=== PATIENT | male | born 1975 | race Hispanic/Latino ===

== ENCOUNTER 2022-09-02 08:39 | Emergency (ER) | payer OTHER, BC ==
[~2022-09-02] VITALS: Ht 172.7 cm; Wt 108.9 kg
[2022-09-02] MEDS ORDERED: KETOROLAC 30MG VIAL (30MG/ML) IM ONE ×2 (09:30)
[2022-09-02] MEDS ORDERED: NAPR375T6 PO (10:48)
[2022-09-02 11:27] VITALS: BP 135/98
== END 2022-09-02 11:27 | disposition home or self-care (01) ==
LOC: EDH 08:39
DX: S29.012A Strain of muscle and tendon of back wall of thorax, initial encounter (principal); V89.2XXA Person injured in unspecified motor-vehicle accident, traffic, initial encounter; Y93.89 Activity, other specified; Y92.410 Unspecified street and highway as the place of occurrence of the external cause; Y99.8 Other external cause status
CPT/HCPCS: 99284; 72040; 73562; 72100; 72072; 96372; J1885

== ENCOUNTER 2024-03-03 02:06 | Inpatient (IN) | payer BC ==
[2024-03-03] VITALS (8 sets, daily range): BP systolic 131–155; BP diastolic 77–100; PULSE 79–98; RESP 17–19; TEMP 98–100; O2SAT 96–98
[~2024-03-03] VITALS: Ht 172.7 cm; Wt 107.9 kg
[~2024-03-03 02:06] MED LIST: NAPR375T6 PO
[2024-03-03] MEDS: [UNRECOGNIZED DRUG - OTHER] IV ONE (02:18)
[2024-03-03] MEDS: cefTRIAXone 1G VIAL IVPB ONE (02:18)
[2024-03-03] MEDS: ONDANSETRON 4MG INJ ONE (02:18)
[2024-03-03 02:19] LABS: BASOPHILS # (AUTO) 0.05 K/uL (0.00-0.20); BASOPHILS % (AUTO) 0.4 % (0.0-5.0); EOSINOPHILS # (AUTO) 0.12 K/uL (0.00-0.70); EOSINOPHILS % (AUTO) 0.9 % (0.0-8.0); HEMATOCRIT 44.3 % (42-54); LYMPHOCYTES # (AUTO) 3.7 K/uL (1.0-4.8); LYMPHOCYTES % (AUTO) 28.8 % (21.0-51.0); MEAN CORPUSCULAR HEMOGLOBIN 30.3 pg (27.0-33.0); MEAN CORPUSCULAR HGB CONC 34.8 g/dL (32.0-36.0); MEAN CORPUSCULAR VOLUME 87.2 fL (79-99); MONOCYTES # (AUTO) 0.6 K/uL (0.1-1.0); MONOCYTES % (AUTO) 4.2 % (3.0-13.0); NEUTROPHILS # (AUTO) 8.4 K/uL (1.8-7.7); NEUTROPHILS % (AUTO) 64.9 % (40.0-77.0); PLATELET COUNT (AUTO) 283 K/uL (130-400); RED BLOOD CELL COUNT(AUTO) 5.08 MIL/uL (4.50-6.20); RED CELL DISTRIBUTION WIDTH 11.8 % (11.0-15.5)
[2024-03-03 02:37] LABS: ABG BASE EXCESS -12.2 mmol/L (-2.0-3.0); ABG HCO3 13.3 mmol/L (21.0-28.0); ABG OXYGEN SATURATION 95.4 % (94.0-98.0); ABG PCO2 30 mmHg (35-48); ABG PH 7.265 (7.350-7.450); PO2, ARTERIAL BG 86.5 mmHg (83.0-108.0); VENT MODE, BG ROOMAIR (ROOM AIR)
[2024-03-03 02:46] LABS: B-TYPE NATRIURETIC PEPTIDE 27 pg/mL (0-100)
[2024-03-03 02:51] LABS: ALBUMIN 3.8 g/dL (3.5-5.0); BILIRUBIN,DIRECT 0.3 mg/dL (0.0-0.3); BILIRUBIN,TOTAL 0.6 mg/dL (0.2-1.0); TOTAL PROTEIN, SERUM 7.4 g/dL (6.0-8.3)
[2024-03-03 02:54] LABS: CREATININE 1.4 mg/dL (0.5-1.3)
[2024-03-03] MEDS: ONDANSETRON 4MG INJ IVP ONE ×2 (03:23→05:24)
[2024-03-03] MEDS ORDERED: IOHEXOL-350 75 ML VIAL IV ONE (03:56)
[2024-03-03 04:50] LABS: MAGNESIUM 1.6 mg/dL (1.80-2.40)
[2024-03-03] MEDS: POTASSIUM CHLORIDE 10MEQ/100ML 100 ML IV ONE (05:17)
[2024-03-03 05:19] LABS: APPEARANCE,URINE CLEAR (CLEAR); BILIRUBIN,URINE NEGATIVE (NEGATIVE); COLOR,URINE COLORLESS (YELLOW); GLUCOSE, URINE (UA) NEGATIVE (NEGATIVE); KETONES,URINE NEGATIVE (NEGATIVE); LEUKOCYTE ESTERASE ,URINE NEGATIVE Leu/uL (NEGATIVE); NITRATE,URINE NEGATIVE (NEGATIVE); OCCULT BLOOD,URINE NEGATIVE (NEGATIVE); PROTEIN,URINE NEGATIVE (NEGATIVE); UROBILINOGEN,URINE 0.2 mg/dL (0.2-1.0)
[2024-03-03] MEDS: hydroMORPHone 0.5 MG SYG (0.5MG/0.5ML) IVP ONE (05:25)
[2024-03-03 05:26] LABS: ADD UA MICROSCOPIC NO
[2024-03-03 05:27] LABS: AMPHET/METH SCREEN,URINE NEGATIVE (NEGATIVE); BARBITURATE SCREEN, URINE NEGATIVE (NEGATIVE); BENZODIAZEPINES SCREEN,URINE NEGATIVE (NEGATIVE); CANNABINOID SCREEN,URINE NEGATIVE (NEGATIVE); COCAINE SCREEN,URINE NEGATIVE (NEGATIVE); OPIATE SCREEN,URINE NEGATIVE (NEGATIVE); PHENCYCLIDINE SCREEN,URINE NEGATIVE (NEGATIVE)
[2024-03-03] MEDS: 0.9%NACL 1000ML 1,000 ML IV SCH ×2 (05:58→15:59)
[2024-03-03] MEDS ORDERED: TEMAZEPAM 15 MG CAPSULE PO PRN (06:00)
[2024-03-03] MEDS ORDERED: GLUCAGON 1MG KIT 1 MG ML IM PRN (06:00)
[2024-03-03] MEDS ORDERED: acetaMINOPHEN 650 MG SUPPOSITORY RC PRN (06:00)
[2024-03-03] MEDS ORDERED: ONDANSETRON 4MG INJ IVP PRN (06:00)
[2024-03-03] MEDS ORDERED: POTASSIUM CHLORIDE 20MEQ/100ML 100 ML IV PRN (06:00)
[2024-03-03] MEDS ORDERED: doCUSate SODIUM 100 MG CAP PO PRN (06:00)
[2024-03-03] MEDS ORDERED: MAGNESIUM 2GM PREMIX 50ML 50 ML IV PRN (06:00)
[2024-03-03] MEDS ORDERED: DEXTROSE 50%-WATER 50 ML DISP.SYRIN IV PRN (06:00)
[2024-03-03] MEDS ORDERED: hydrALAZine 20MG/ML VIAL IV PRN ×2 (06:00→12:00)
[2024-03-03] MEDS ORDERED: POTASSIUM CHLORIDE 10% ELIXIR 20 MEQ/15 ML UDCUP PO PRN (06:00)
[2024-03-03] MEDS ORDERED: LACTULOSE 20 GM/30 ML UDCUP PO PRN (06:00)
[2024-03-03] MEDS ORDERED: ketOROlac 30MG VIAL (30MG/ML) IVP PRN (06:00)
[2024-03-03] MEDS: INSULIN humuLIN R 100 UNIT/ML 3ML SQ SCH (07:30)
[2024-03-03] MEDS: ENOXAPARIN SODIUM 30 MG/0.3 ML SQ SCH (08:27)
[2024-03-03] MEDS: ZOSYN 3.375GM +NS 50ML IV SCH (08:27)
[2024-03-03] MEDS ORDERED: METF-446 PO (10:45)
[2024-03-03] MEDS: morPHINE 2 MG SYG IVP PRN (10:59)
[2024-03-03] MEDS ORDERED: metRONIDazole 500MG/100ML BAG IV SCH (12:00)
[2024-03-03 12:05] LABS: ABG BASE EXCESS -4.2 mmol/L (-2.0-3.0); ABG HCO3 19.8 mmol/L (21.0-28.0); ABG OXYGEN SATURATION 95.7 % (94.0-98.0); ABG PCO2 34 mmHg (35-48); ABG PH 7.389 (7.350-7.450); DEVICE COMMENT RR VELENTINA; PO2, ARTERIAL BG 79.1 mmHg (83.0-108.0); VENT MODE, BG RA (ROOM AIR)
[2024-03-03] MEDS: cefTRIAXone 1G VIAL IVPB SCH (12:36)
[2024-03-03] MEDS: metRONIDazole 500MG/100ML BAG 100 ML IVPB SCH (13:00)
[2024-03-03] MEDS ORDERED: ROSU20TA73 PO (15:45)
[2024-03-03] MEDS ORDERED: LISI1TAB51 PO (15:45)
[2024-03-03] MEDS ORDERED: OMEP40CA21 PO (15:47)
[2024-03-03] MEDS ORDERED: UBID400C8 PO (15:47)
[2024-03-03] MEDS: hydroCHLOROthiazide 25 MG TABLET PO ONE (16:37)
[2024-03-03] MEDS: LISINOPRIL 20 MG TABLET PO ONE (16:38)
[2024-03-03] MEDS: KCL 20 MEQ ERTAB PO PRN (19:49)
[2024-03-03] MEDS: MAGNESIUM 2GM PREMIX 50ML 50 ML IV SCH (19:49)
[2024-03-03] MEDS: acetaMINOPHEN 325 MG TAB PO PRN (22:26)
[2024-03-04] VITALS (8 sets, daily range): BP systolic 132–149; BP diastolic 83–101; PULSE 73–98; RESP 16–19; TEMP 98.3–101.5; O2SAT 97–98
[2024-03-04 05:49] LABS: HEMATOCRIT 35.4 % (42-54); MEAN CORPUSCULAR HEMOGLOBIN 30.5 pg (27.0-33.0); MEAN CORPUSCULAR HGB CONC 34.5 g/dL (32.0-36.0); MEAN CORPUSCULAR VOLUME 88.5 fL (79-99); RED CELL DISTRIBUTION WIDTH 12.2 % (11.0-15.5); WHITE BLOOD COUNT (AUTO) 9.6 K/uL (4.8-10.8)
[2024-03-04 06:06] LABS: ALBUMIN 2.8 g/dL (3.5-5.0); BILIRUBIN,TOTAL 0.8 mg/dL (0.2-1.0); CREATININE 0.9 mg/dL (0.5-1.3); MAGNESIUM 1.8 mg/dL (1.80-2.40); PHOSPHORUS 2.1 mg/dL (2.5-4.9); POTASSIUM 4.3 mmol/L (3.5-5.1); TOTAL PROTEIN, SERUM 5.9 g/dL (6.0-8.3)
[2024-03-04] MEDS ORDERED: NON-FORMULARY MEDICATION 1 EACH (Lisinopril/Hydrochlorothiazide (Lisinopril-Hctz 20-12.5 m PO SCH (09:00)
[2024-03-04] MEDS: hydroCHLOROthiazide 25 MG TABLET PO SCH (12:16)
[2024-03-04] MEDS: LISINOPRIL 20 MG TABLET PO SCH (12:17)
[2024-03-04] MEDS: LORazepam 2 MG/ML 1 ML VIAL IVP ONE (16:00)
[2024-03-04] MEDS: LAbetaLOL 20MG SYG IV ONE ×2 (23:26→23:31)
[2024-03-05] VITALS (13 sets, daily range): BP systolic 129–160; BP diastolic 65–113; PULSE 71–90; RESP 16–20; TEMP 98.1–100.9; O2SAT 98
[2024-03-05 00:01] LABS: BASOPHILS # (AUTO) 0.05 K/uL (0.00-0.20); BASOPHILS % (AUTO) 0.4 % (0.0-5.0); EOSINOPHILS # (AUTO) 0.17 K/uL (0.00-0.70); EOSINOPHILS % (AUTO) 1.3 % (0.0-8.0); HEMATOCRIT 35.3 % (42-54); IMMATURE GRANULOCYTE ABSOLUTE 0.07 K/uL (0-1); LYMPHOCYTES # (AUTO) 1.3 K/uL (1.0-4.8); LYMPHOCYTES % (AUTO) 9.8 % (21.0-51.0); MEAN CORPUSCULAR HEMOGLOBIN 30.3 pg (27.0-33.0); MEAN CORPUSCULAR HGB CONC 34.3 g/dL (32.0-36.0); MEAN CORPUSCULAR VOLUME 88.5 fL (79-99); MONOCYTES # (AUTO) 1.1 K/uL (0.1-1.0); MONOCYTES % (AUTO) 8.3 % (3.0-13.0); NEUTROPHILS # (AUTO) 10.2 K/uL (1.8-7.7); NEUTROPHILS % (AUTO) 79.7 % (40.0-77.0); PLATELET COUNT (AUTO) 183 K/uL (130-400); RED BLOOD CELL COUNT(AUTO) 3.99 MIL/uL (4.50-6.20); RED CELL DISTRIBUTION WIDTH 12.3 % (11.0-15.5); WHITE BLOOD COUNT (AUTO) 12.8 K/uL (4.8-10.8)
[2024-03-05 00:13] LABS: CREATININE 0.9 mg/dL (0.5-1.3); POTASSIUM 4.3 mmol/L (3.5-5.1)
[2024-03-05 00:16] LABS: ALBUMIN 2.8 g/dL (3.5-5.0); BILIRUBIN,TOTAL 0.8 mg/dL (0.2-1.0); MAGNESIUM 1.7 mg/dL (1.80-2.40); TOTAL PROTEIN, SERUM 6.4 g/dL (6.0-8.3)
[2024-03-05 00:24] LABS: B-TYPE NATRIURETIC PEPTIDE 101 pg/mL (0-100)
[2024-03-05 11:51] LABS: CREATININE 0.9 mg/dL (0.5-1.3); POTASSIUM 3.8 mmol/L (3.5-5.1); THYROID STIMULATING HORMONE 2.03 uIU/mL (0.36-3.74)
[2024-03-05] MEDS: metoPROLOL tartRATE 25 MG TAB PO SCH (20:32)
[2024-03-05] MEDS: amLODIPine 2.5 MG TAB PO ONE (22:44)
[2024-03-06 03:57] VITALS: BP 146/96; PULSE 86; RESP 16; TEMP 98.9
[2024-03-06 06:09] LABS: BASOPHILS # (AUTO) 0.05 K/uL (0.00-0.20); BASOPHILS % (AUTO) 0.4 % (0.0-5.0); EOSINOPHILS # (AUTO) 0.27 K/uL (0.00-0.70); EOSINOPHILS % (AUTO) 2.4 % (0.0-8.0); HEMATOCRIT 34.8 % (42-54); IMMATURE GRANULOCYTE ABSOLUTE 0.06 K/uL (0-1); LYMPHOCYTES # (AUTO) 1.2 K/uL (1.0-4.8); LYMPHOCYTES % (AUTO) 10.8 % (21.0-51.0); MEAN CORPUSCULAR HEMOGLOBIN 30.6 pg (27.0-33.0); MEAN CORPUSCULAR HGB CONC 34.5 g/dL (32.0-36.0); MEAN CORPUSCULAR VOLUME 88.8 fL (79-99); NEUTROPHILS # (AUTO) 8.7 K/uL (1.8-7.7); NEUTROPHILS % (AUTO) 76.9 % (40.0-77.0); PLATELET COUNT (AUTO) 179 K/uL (130-400); RED BLOOD CELL COUNT(AUTO) 3.92 MIL/uL (4.50-6.20); RED CELL DISTRIBUTION WIDTH 12.3 % (11.0-15.5); WHITE BLOOD COUNT (AUTO) 11.3 K/uL (4.8-10.8)
[2024-03-06 06:23] LABS: ALBUMIN 2.8 g/dL (3.5-5.0); BILIRUBIN,TOTAL 0.5 mg/dL (0.2-1.0); CREATININE 0.9 mg/dL (0.5-1.3); TOTAL PROTEIN, SERUM 6.5 g/dL (6.0-8.3)
[2024-03-06 08:00] VITALS: O2SAT 96
[2024-03-06 08:16] VITALS: BP 129/81; PULSE 68; RESP 18; TEMP 98.3
[2024-03-06] MEDS ORDERED: METR-361 PO (10:51)
[2024-03-06] MEDS ORDERED: METO25 PO (10:51)
[2024-03-06 11:41] VITALS: BP 143/101; PULSE 73; RESP 18; TEMP 98.1
== END 2024-03-06 14:00 | disposition home or self-care (01) | DRG 871 ==
LOC: EDH 02:06 → EDHIP 05:24 → 3DH 06:13
PROVIDERS: ADMIT Internal Medicine; ATTEND Internal Medicine
DX: A41.9 Sepsis, unspecified organism (principal); K85.20 Alcohol induced acute pancreatitis without necrosis or infection; E87.1 Hypo-osmolality and hyponatremia; N17.9 Acute kidney failure, unspecified; N13.30 Unspecified hydronephrosis; I47.19 Other supraventricular tachycardia; E87.20 Acidosis, unspecified; I10 Essential (primary) hypertension; E86.0 Dehydration; K76.89 Other specified diseases of liver; I48.91 Unspecified atrial fibrillation; E78.5 Hyperlipidemia, unspecified; F17.210 Nicotine dependence, cigarettes, uncomplicated; E83.42 Hypomagnesemia; E87.6 Hypokalemia; Y90.9 Presence of alcohol in blood, level not specified; E11.9 Type 2 diabetes mellitus without complications; F10.229 Alcohol dependence with intoxication, unspecified; R33.9 Retention of urine, unspecified; D72.829 Elevated white blood cell count, unspecified
CPT/HCPCS: 36415; 36600; 70450; 71045; 74177; 76770; 80048; 80053; 80061; 80076; 80305; 81003; 82150; 82550; 82803; 82948; 83605; 83690; 83735; 83880; 84100; 84145; 84443; 84478; 84484; 85025; 85027; 87040; 87086; 93005; 93306; 93356; 96365; 96375; 96376; 99291; G0378; J0696; J1170; J1650; J2270; J2405; J2543; J3475; J3480; J3490; Q9967